=== PATIENT | male | born 1970 | race Caucasian/White ===

== ENCOUNTER → 2018-06-05 | Outpatient (CLI) | payer MEDICARE, OTHER ==
--- NOTE | 2018-06-05 10:33 | EST ---
EXERCISE STRESS AGE: 48 SEX: M HT: 5'8" WT: 380 PROTOCOL: Dewayne Stress Test STAGE: II DURATION OF EXERCISE: 6:03 HEART RATE REST: 60 BLOOD PRESSURE REST: 144/84 MAXIMUM HEART RATE ACHIEVED: 148 MAXIMUM BLOOD PRESSURE: 210/104 85% MPHR: 145 100% MPHR: 172 METS: 7.3 INDICATIONS: Chest pain. CLINICAL INFORMATION: Baseline EKG shows sinus rhythm, normal axis, normal intervals. Patient exercised on Dewayne protocol for a total of 6 minutes achieving 7 METS, 86% of predicted maximal heart rate without chest pain or diagnostic ST-segment depression. CONCLUSION: 1. Average exercise tolerance. 2. Negative stress test by EKG criteria. MMODL / IJN: [id number] /
== END | disposition home or self-care (01) ==
LOC: RADNMMAIN 08:51
PROVIDERS: ATTEND Internal Medicine
DX: R07.9 Chest pain, unspecified (principal)
CPT/HCPCS: 93017

== ENCOUNTER → 2018-10-05 | Outpatient (CLI) | payer MEDICARE, OTHER ==
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
== END ==
LOC: SLEEP 14:17
PROVIDERS: ATTEND Internal Medicine
DX: G47.33 Obstructive sleep apnea (adult) (pediatric) (principal); E66.9 Obesity, unspecified; I10 Essential (primary) hypertension; F41.9 Anxiety disorder, unspecified; Z86.59 Personal history of other mental and behavioral disorders; Z98.890 Other specified postprocedural states; Z99.89 Dependence on other enabling machines and devices; Z79.899 Other long term (current) drug therapy; Z87.891 Personal history of nicotine dependence
CPT/HCPCS: 99211